=== PATIENT | female | born 1945 | race Caucasian/White ===

== ENCOUNTER 2016-10-06 15:12 | Emergency (ER) | payer MEDICARE ==
[2016-10-06 15:55] LABS: Bilirubin Negative (Negative); Blood, Urine Negative (Negative); Clarity Clear (Clear); Glucose, Urine (Dipstick) Negative (Negative); Leukocyte Negative (Negative); Nitrite Negative (Negative); Protein, Urine (Dipstick) Negative (Neg-Trace); Urobilinogen 0.2 mg/dL (0.2-1.0)
--- NOTE | 2016-10-06 15:56 | RAD ---
PORTABLE CHEST 1 VIEW: Date: 10/06/16 Time: 1533 hours HISTORY: Dizziness, pain between shoulders. Hypotension. FINDINGS: The heart size is normal. The lungs are well expanded without focal areas of consolidation, pneumoth orax, or pleural effusions. There are postop changes in the right axilla. IMPRESSION: No radiographic evidence of acute cardiopulmonary process. POS: [facility]
[2016-10-06 16:02] LABS: #Basophils 0.1 thou/uL (0.0-0.2); #Eosinphils 0.1 thou/uL (0.0-0.7); #Lymphocytes 1.3 thou/uL (1.20-3.40); #Monocytes 0.5 thou/uL (0.11-0.59); #Neutrophils 2.4 thou/uL (1.40-6.50); %Basophils 2.2 % (0.0-1.0); %Eosinophils 2.4 % (0.0-10.0); %Lymphocytes 29.4 % (21.0-51.0); %Monocytes 12.2 % (0.0-10.0); %Neutrophils 53.8 % (42.0-75.0); Hemoglobin 13.5 g/dL (12.0-16.0); Mean Corpuscular HGB CONC 33.2 g/dL (32.0-36.0); Mean Corpuscular Hemoglobin 30.6 pg (27.0-31.0); Mean Corpuscular Volume 92.1 fl (81.0-99.0); Mean Platelet Volume 11.7 fL (7.4-10.4); Platelet Count 163 thou/uL (130-400); White Blood Cell (WBC) Count 4.4 thou/uL (4.8-10.8)
[2016-10-06 16:16] LABS: AST (SGOT) 19 U/L (5-34); Albumin 4.1 g/dL (3.4-4.8); Alkaline Phosphatase 90 U/L (40-150); Anion Gap 16 mmol/L (10-20); BUN (Urea Nitrogen) 15 mg/dL (9.8-20.1); Bilirubin, Total 1.1 mg/dL (0.2-1.2); CK (CPK) 82 U/L (29-168); Calc. Creatinine Clearance 0 mL/min (70-130); Calcium 9.1 mg/dL (7.8-10.44); Chloride 107 mmol/L (98-107); Estimated GFR-MDRD 74; Globulin 2.5 g/dL (2.4-3.5); Glucose 85 mg/dL (83-110); Potassium 3.7 mmol/L (3.5-5.1); Protein, Total 6.6 g/dL (5.8-8.1)
[2016-10-06 16:18] LABS: CKMB 1.1 ng/mL (0-6.6); Troponin I Less than 0.010 ng/mL (< 0.028)
[2016-10-06 16:21] LABS: ALT (SGPT) 23 U/L (0-55); Carbon Dioxide 24 mmol/L (23-31); Sodium 143 mmol/L (136-145)
[2016-10-06] MEDS ORDERED: cloNIDine HCl 0.1 MG TAB ONE (17:14)
[2016-10-06] MEDS ORDERED: Acetaminophen 500 MG TAB ONE (18:01)
== END 2016-10-06 18:15 | disposition home or self-care (01) ==
LOC: NAV ERS 15:12
DX: B34.9 Viral infection, unspecified (principal); I10 Essential (primary) hypertension; Z79.899 Other long term (current) drug therapy
CPT/HCPCS: 71010; 80053; 81003; 82550; 82553; 83880; 84484; 85025; 93005; 94760

== ENCOUNTER 2019-01-13 10:32 | Emergency (ER) | payer MEDICARE ==
[2019-01-13] MEDS ORDERED: Lidocaine 1% w/Epinephrine 1:100K 30 ML VIAL ONE (10:40)
[2019-01-13] MEDS ORDERED: Bacitracin Zinc 1 Packet ONE (12:04)
== END 2019-01-13 12:10 | disposition home or self-care (01) ==
LOC: NAV ERS 10:32
DX: S51.812A Laceration without foreign body of left forearm, initial encounter (principal); I10 Essential (primary) hypertension; Z79.899 Other long term (current) drug therapy; Z79.891 Long term (current) use of opiate analgesic; W01.0XXA Fall on same level from slipping, tripping and stumbling without subsequent striking against object, initial encounter
CPT/HCPCS: J2001

== ENCOUNTER 2019-01-13 17:13 | Emergency (ER) | payer MEDICARE ==
[2019-01-13] MEDS ORDERED: Ondansetron PF 4 MG/2 ML Vial ONE ×2 (17:36→18:44)
[2019-01-13] MEDS ORDERED: Sodium Chloride 0.9% 500 ML ONE (17:36)
[2019-01-13] MEDS ORDERED: Morphine 4 MG/ML VIAL ONE ×2 (17:36→18:44)
[2019-01-13 17:51] LABS: #Basophils 0.1 thou/uL (0.0-0.2); #Eosinphils 0.2 thou/uL (0.0-0.7); #Lymphocytes 1.1 thou/uL (1.20-3.40); #Monocytes 0.8 thou/uL (0.11-0.59); #Neutrophils 4.4 thou/uL (1.40-6.50); %Basophils 1.6 % (0.0-1.0); %Eosinophils 3.3 % (0.0-10.0); %Lymphocytes 16.5 % (21.0-51.0); %Monocytes 11.8 % (0.0-10.0); %Neutrophils 66.8 % (42.0-75.0); Hemoglobin 12.7 g/dL (12.0-16.0); Mean Corpuscular HGB CONC 32.6 g/dL (32.0-36.0); Mean Platelet Volume 11.4 fL (7.4-10.4); Platelet Count 164 thou/uL (130-400); RBC Distribution Width 12.2 % (11.5-14.5); Red Blood Cell (RBC) Count 4.23 mill/uL (4.20-5.40); White Blood Cell (WBC) Count 6.5 thou/uL (4.8-10.8)
[2019-01-13 17:57] LABS: INR-International Normal Ratio 1.1; PTT 32.3 SEC (22.9-36.1); Prothrombin Time 14.7 SEC (12.0-14.7)
[2019-01-13 18:02] LABS: Anion Gap 14 mmol/L (10-20); BUN (Urea Nitrogen) 19 mg/dL (9.8-20.1); Calc. Creatinine Clearance 0 mL/min (70-130); Calcium 9.3 mg/dL (7.8-10.44); Carbon Dioxide 24 mmol/L (23-31); Chloride 108 mmol/L (98-107); Estimated GFR-MDRD 66; Glucose 134 mg/dL (83-110); Potassium 3.7 mmol/L (3.5-5.1); Sodium 142 mmol/L (136-145)
== END 2019-01-13 19:07 | disposition short-term general hospital (02) ==
LOC: NAV ERS 17:13
DX: S50.12XA Contusion of left forearm, initial encounter (principal); G56.22 Lesion of ulnar nerve, left upper limb; I10 Essential (primary) hypertension; Z86.73 Personal history of transient ischemic attack (TIA), and cerebral infarction without residual deficits; Z79.899 Other long term (current) drug therapy; W18.30XA Fall on same level, unspecified, initial encounter
CPT/HCPCS: 12002; 80048; 85025; 85610; 85730; 90471; 96361; 96374; 96375; J2001; J2270; J2405; J7050

== ENCOUNTER 2020-12-31 19:33 | Emergency (ER) | payer MEDICARE ==
[2020-12-31 20:05] LABS: Hemoglobin 13.5 g/dL (12.0-16.0); Mean Corpuscular HGB CONC 31.3 g/dL (32.0-36.0); Mean Corpuscular Volume 95.9 fL (78.0-98.0); Mean Platelet Volume 10.2 fL (7.4-10.4); Platelet Count 145 thou/uL (130-400); RBC Distribution Width 12.4 % (11.5-14.5); Red Blood Cell (RBC) Count 4.51 mill/uL (4.20-5.40); White Blood Cell (WBC) Count 6.3 thou/uL (4.8-10.8)
[2020-12-31] MEDS ORDERED: Nitroglycerin 0.4 MG TAB (25 Tab Bottle) ONE (20:12)
[2020-12-31] MEDS ORDERED: Aspirin Chewable 81 MG TAB ONE (20:12)
[2020-12-31] MEDS ORDERED: Atropine Sulfate 1 mg/10 ml Syringe ONE (20:26)
[2020-12-31 20:32] LABS: Lymphocytes 21 % (21-51); MDiff Complete? YES; Monocytes 2 % (0-10); Neutrophil 77 % (42-75); Platelet Morphology Comment Appears Adequate; RBC Morphology Normal
[2020-12-31 21:30] LABS: ALT (SGPT) 22 U/L (8-55); AST (SGOT) 18 U/L (5-34); Albumin 3.9 g/dL (3.4-4.8); Alkaline Phosphatase 76 U/L (40-110); Anion Gap 14 mmol/L (10-20); BUN (Urea Nitrogen) 16 mg/dL (9.8-20.1); Bilirubin, Total 1.2 mg/dL (0.2-1.2); Calc. Creatinine Clearance 0 mL/min (70-130); Calcium 8.7 mg/dL (7.8-10.44); Carbon Dioxide 25 mmol/L (23-31); Chloride 107 mmol/L (98-107); Globulin 2.7 g/dL (2.4-3.5); Glucose 104 mg/dL (83-110); Potassium 3.5 mmol/L (3.5-5.1); Protein, Total 6.6 g/dL (5.8-8.1); Sodium 142 mmol/L (136-145)
== END 2020-12-31 22:45 | disposition short-term general hospital (02) ==
LOC: NAV ERS 19:33
DX: R00.1 Bradycardia, unspecified (principal); R42 Dizziness and giddiness; R11.0 Nausea; I10 Essential (primary) hypertension; Z86.73 Personal history of transient ischemic attack (TIA), and cerebral infarction without residual deficits; Z79.899 Other long term (current) drug therapy
CPT/HCPCS: 36415; 71045; 80053; 83690; 84484; 85025; 93005; 96374; 96375; J0461

== ENCOUNTER 2021-01-25 16:47 | Emergency (ER) | payer OTHER, MEDICARE | END 2021-01-25 18:10 | disposition home or self-care (01) | LOC: NAV ERS 16:47 | DX: S16.1XXA Strain of muscle, fascia and tendon at neck level, initial encounter (principal); I10 Essential (primary) hypertension; Z86.73 Personal history of transient ischemic attack (TIA), and cerebral infarction without residual deficits; Z79.899 Other long term (current) drug therapy; V43.52XA Car driver injured in collision with other type car in traffic accident, initial encounter; Y92.410 Unspecified street and highway as the place of occurrence of the external cause | CPT/HCPCS: 72125; G0390 ==

== ENCOUNTER 2022-10-21 19:27 | Emergency (ER) | payer MEDICARE ==
[2022-10-21] MEDS ORDERED: Lidocaine 1% (PF) 30 ML VIAL ONE (19:47)
[2022-10-21] MEDS ORDERED: Bupivacaine 0.5% 10 ML VIAL ONE (19:47)
[2022-10-21] MEDS ORDERED: Cephalexin 250 MG CAP ONE (20:19)
[2022-10-21] MEDS ORDERED: Bacitracin 1 PK ONE (21:13)
== END 2022-10-21 21:47 | disposition home or self-care (01) ==
LOC: NAV ERS 19:27
DX: S62.637B Displaced fracture of distal phalanx of left little finger, initial encounter for open fracture (principal); I10 Essential (primary) hypertension; W27.0XXA Contact with workbench tool, initial encounter; Z79.899 Other long term (current) drug therapy
CPT/HCPCS: 12001; J2001; J3490

== ENCOUNTER 2023-04-11 13:02 | Outpatient (CLI) | payer MEDICARE | END 2023-04-11 13:03 | disposition home or self-care (01) | LOC: NAV CT 13:02 | PROVIDERS: ATTEND Internal Medicine Gastroenterology | DX: R10.32 Left lower quadrant pain (principal); K59.00 Constipation, unspecified; K92.1 Melena; N20.0 Calculus of kidney; I31.39 Other pericardial effusion (noninflammatory); Z90.710 Acquired absence of both cervix and uterus | CPT/HCPCS: 74177 ==

== ENCOUNTER 2024-06-13 15:56 | Emergency (ER) | payer MEDICARE | END 2024-06-13 17:18 | disposition home or self-care (01) | LOC: NAV ERS 15:56 | DX: S93.402A Sprain of unspecified ligament of left ankle, initial encounter (principal); I10 Essential (primary) hypertension; Z55.6 Problems related to health literacy; X50.1XXA Overexertion from prolonged static or awkward postures, initial encounter | CPT/HCPCS: 99283 ==

== ENCOUNTER 2024-12-07 20:43 | Emergency (ER) | payer MEDICARE, SELFPAY ==
[2024-12-07] MEDS ORDERED: Bacitracin 1 PK ONE (21:40)
[2024-12-07] MEDS ORDERED: Cephalexin 500 MG CAP ONE (21:40)
[2024-12-07] MEDS ORDERED: Lidocaine 1% (PF) 30 ML VIAL ONE (21:41)
== END 2024-12-07 22:10 | disposition home or self-care (01) ==
LOC: NAV ERS 20:43
DX: S62.630B Displaced fracture of distal phalanx of right index finger, initial encounter for open fracture (principal); I10 Essential (primary) hypertension; W26.8XXA Contact with other sharp object(s), not elsewhere classified, initial encounter
CPT/HCPCS: 12001; 99283